=== PATIENT | male | born 1955 | race Caucasian/White ===

== ENCOUNTER 2022-12-19 06:37 | Day surgery (SDC) | payer OTHER ==
[~2022-12-19] VITALS: Ht 170.2 cm; Wt 92.5 kg
[2022-12-19] MEDS ORDERED: fentaNYL citrate 0.05 MG/ML VIAL ONE (07:02)
[2022-12-19] MEDS ORDERED: MIDAZOLAM 5 MG/5 ML VIAL ONE (07:03)
[2022-12-19] MEDS ORDERED: MIDAZOLAM 2 MG/2 ML VIAL IVP ONE (08:05)
[2022-12-19] MEDS ORDERED: fentaNYL citrate 0.05 MG/ML VIAL IVP ONE (08:05)
== END 2022-12-19 09:10 | disposition home or self-care (01) ==
LOC: MDS 06:37 → MMU 06:38 → MDS 09:10
PROVIDERS: ATTEND Internal Medicine
DX: Z12.11 Encounter for screening for malignant neoplasm of colon (principal); K57.30 Diverticulosis of large intestine without perforation or abscess without bleeding; Z86.010 Personal history of colon polyps; I11.0 Hypertensive heart disease with heart failure; I50.9 Heart failure, unspecified; E11.9 Type 2 diabetes mellitus without complications; E66.9 Obesity, unspecified; Z68.32 Body mass index [BMI] 32.0-32.9, adult; Z79.899 Other long term (current) drug therapy; Z20.822 Contact with and (suspected) exposure to COVID-19
CPT/HCPCS: 87426; G0105; J2250; J3010